=== PATIENT | male | born 1970 | race Caucasian/White ===

== ENCOUNTER 2017-05-07 15:15 | Emergency (ER) | payer OTHER ==
[~2017-05-07] VITALS: Ht 180.3 cm; Wt 102.6 kg
[2017-05-07] MEDS ORDERED: NAPROSYN500 MG PO (16:55)
[2017-05-07] MEDS ORDERED: FLEXERIL10 MG PO (16:55)
[2017-05-07 17:39] VITALS: BP 150/112
== END 2017-05-07 17:40 | disposition home or self-care (01) ==
LOC: EME 15:15
DX: S86.111A Strain of other muscle(s) and tendon(s) of posterior muscle group at lower leg level, right leg, initial encounter (principal)
CPT/HCPCS: 93971